=== PATIENT | male | born 2000 | race Caucasian/White ===

== ENCOUNTER 2021-10-03 11:29 | Emergency (ER) | payer SELFPAY ==
[2021-10-03] MEDS ORDERED: NAPROSYN500 MG PO (12:58)
== END 2021-10-03 13:29 | disposition home or self-care (01) ==
LOC: ER1 11:29
DX: M25.531 Pain in right wrist (principal); Z90.89 Acquired absence of other organs; F17.200 Nicotine dependence, unspecified, uncomplicated
CPT/HCPCS: 73110; 99283